=== PATIENT | male | born 1940 | race Caucasian/White ===

== ENCOUNTER 2020-11-23 13:04 | Outpatient (REF) | payer MEDICARE, SELFPAY ==
--- NOTE | 2020-11-23 17:26 | MHC.AU.AHA ---
Adult Audiological Evaluation Date of Visit: 11/23/20 Duct Layer Used: Reason for Appointment: Audiological evaluation to monitor the status of Mr. Gustafson's hearing loss. He has a longstanding history of bilateral sensorineural hearing loss and hearing aid use. He and his daughter believe that his hearing is gradually decreasing. Mr. Gustafson feels he does not receive much benefit from his current hearing aids. Mr. Gustafson has had some significant health changes in the past year, including having a pace maker placed several months ago. Previous Hearing Test Results: [facility] [place], 06/16/2019- Mild steeply sloping to profound sensorineural hearing loss bilaterally. Ear History: Ear Deformity: Recent Ear Drainage: Recent Ear Pain: Family History of Hearing Loss?: Recent Ear Infections: Ear Infections in Childhood: History of Ear Wax Buildup: Previous Ear Surgery: Bothersome Tinnitus/Ringing/Noises in Ears: Ear used on the phone: Blocked/Full Sensation in Ear(s): History of occupational noise exposure?: History: History: Branch: Years in : Medical History: Medical History: Diabetes Dizziness or Unsteadiness Heart Problems High Blood Pressure Medical History: Pace maker placed several months ago. 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: [employer] Model: InstallMonetizero V90-312 canal Serial Number: [id number] Battery Size: 312 Repair Warranty: 12/19/2018 Loss and Damage Warranty: 12/19/2018 Service Plan: Dispensed By: [facility] Date of Fittin07/01/2015 Hearing Instrument History- Left Ear: Lens Mounter: Phonak Model: InstallMonetizero V90-312 canal Serial Number: [id number] Battery Size: 312 Warranty: 12/19/2018 Loss and Damage Warranty: 12/19/2018 Service Plan: Dispensed By: [facility] Date of Fittin07/01/2015 Otoscopy: Right Ear: Unremarkable Left Ear: Unremarkable Tympanometry: Tympanometry performed due to: History of middle ear dysfunction Right Ear: Normal Middle Ear System (Type A) Left Ear: Normal Middle Ear System (Type A) Hearing Evaluation: Transducer(s) Used: Insert Earphones Bone Conduction Method: Conventional Audiometry Stimuli Used: Pure Tones Right Ear: Description of Hearing: Moderate hearing loss at 250 Hz, rising to a mild sensorineural hearing loss from 500-1000 Hz, and steeply sloping to a profound hearing loss from 6164-6458 Hz. Left Ear: Description of Hearing: Mild sensorineural hearing loss from 250-750 Hz, moderate sensorineural hearing loss at 1000 Hz, steeply sloping to a severe sensorineural hearing loss from 9728-5463 Hz, and a profound hearing loss from 6113-0779 Hz. Speech Recognition Threshold (SRT): Method Used: Monitored Live Voice Stimuli Used: Spondee Words Right Ear: 45 dBHL Left Ear: 45 dBHL Word Discrimination: Method: Recorded Lists Word Lists Used: NU-6 Right Ear: 64% at 85 dBHL, 64% at 95 dBHL Left Ear: 20% at 85 dBHL, 32% at 90 dBHL Binaural: 48% at 90 dBHL Most Comfortable Level (MCL): Right Ear: 95 dBHL Left Ear: 90 dBHL Comparison: Compared to the most recent evaluation: Hearing is stable. Word discrimination scores have decreased bilaterally. Interpretation of Results: Given significant decrease in word recognition scores in the left ear, the distortion cause by the hearing loss may be negatively affecting his overall speech understanding abilities. Recommendations: Audiological re-evaluation in one year. Hearing aid maintenance performed today. Hearing aid(s) reprogrammed with updated test results. See Hearing Aid Follow-Up note for more information. Recommend only using a right hearing aid at this time, as amplifying the left ear may be causing more distortion and negatively affecting overall speech understanding. Recommend trial of updated amplification for the right and a SAILAJA style hearing. Sent Mr. Gustafson home with a trial right hearing aid today. Will return in several weeks to discuss options. Diagnosis: Primary Diagnosis: H90.3 Bilateral Sensorineural Hearing Loss Services Performed: Comprehensive Audiological Evaluation (CPT 48310) Tympanometry (CPT 34895) Signature: Provider: Vale Ordonez, CCC-A
--- NOTE | 2020-11-23 17:29 | MHC.AU.AHA ---
Adult Audiological Evaluation Date of Visit: 11/23/20 Reason for Appointment: Audiological evaluation to monitor the status of Mr. Gustafson's hearing loss. He has a longstanding history of bilateral sensorineural hearing loss and hearing aid use. He and his daughter believe that his hearing is gradually decreasing. Mr. Gustafson feels he does not receive much benefit from his current hearing aids. Mr. Gustafson has had some significant health changes in the past year, including having a pace maker placed several months ago. Previous Hearing Test Results: [facility] [place], 06/16/2019- Mild steeply sloping to profound sensorineural hearing loss bilaterally. Medical History: Medical History: Diabetes, Dizziness or Unsteadiness, Heart Problems,High Blood Pressure Medical History: Pace maker placed several months ago. Hearing Instrument History- Right Ear: Mess Attendant: Phonak Model: Virto V90-312 canal Serial Number: [id number] Battery Size: 312 Repair Warranty: 12/19/2018 Loss and Damage Warranty: 12/19/2018 Dispensed By: [facility] Date of Fittin07/01/2015 Hearing Instrument History- Left Ear: Mess Attendant: Phonak Model: Virto V90-312 canal Serial Number: [id number] Battery Size: 312 Warranty: 12/19/2018 Loss and Damage Warranty: 12/19/2018 Dispensed By: [facility] Date of Fittin07/01/2015 Otoscopy: Right Ear: Unremarkable Left Ear: Unremarkable Tympanometry: Tympanometry performed due to: History of middle ear dysfunction Right Ear: Normal Middle Ear System (Type A) Left Ear: Normal Middle Ear System (Type A) Hearing Evaluation: Transducer(s) Used: Insert Earphones, Bone Conduction Method: Conventional Audiometry Stimuli Used: Pure Tones Right Ear: Description of Hearing: Moderate hearing loss at 250 Hz, rising to a mild sensorineural hearing loss from 500-1000 Hz, and steeply sloping to a profound hearing loss from 1828-6248 Hz. Left Ear: Description of Hearing: Mild sensorineural hearing loss from 250-750 Hz, moderate sensorineural hearing loss at 1000 Hz, steeply sloping to a severe sensorineural hearing loss from 4240-2149 Hz, and a profound hearing loss from 1130-6494 Hz. Speech Recognition Threshold (SRT): Method Used: Monitored Live Voice Stimuli Used: Spondee Words Right Ear: 45 dBHL Left Ear: 45 dBHL Word Discrimination: Method: Recorded Lists Word Lists Used: NU-6 Right Ear: 64% at 85 dBHL, 64% at 95 dBHL Left Ear: 20% at 85 dBHL, 32% at 90 dBHL Binaural: 48% at 90 dBHL Most Comfortable Level (MCL): Right Ear: 95 dBHL Left Ear: 90 dBHL Comparison: Compared to the most recent evaluation: Hearing is stable. Word discrimination scores have decreased bilaterally. Interpretation of Results: Given significant decrease in word recognition scores in the left ear, the distortion cause by the hearing loss may be negatively affecting his overall speech understanding abilities. Recommendations: Audiological re-evaluation in one year. Hearing aid maintenance performed today. Hearing aid(s) reprogrammed with updated test results. See Hearing Aid Follow-Up note for more information. Recommend only using a right hearing aid at this time, as amplifying the left ear may be causing more distortion and negatively affecting overall speech understanding. Recommend trial of updated amplification for the right and a SAILAJA style hearing. Sent Mr. Gustafson home with a trial right hearing aid today. Will return in several weeks to discuss options. Diagnosis: Primary Diagnosis: H90.3 Bilateral Sensorineural Hearing Loss Services Performed: Comprehensive Audiological Evaluation (CPT 38445) Tympanometry (CPT 86922) Signature: Provider: Vale Ordonez, CCC-A
== END 2020-11-23 13:05 | disposition home or self-care (01) ==
LOC: HO.SH 13:04
PROVIDERS: Visit Provider Internal Medicine
DX: H90.3 Sensorineural hearing loss, bilateral (principal)
CPT/HCPCS: 92557; 92567

== ENCOUNTER 2021-01-14 14:45 | Outpatient (REF) | payer SELFPAY | END 2021-01-14 14:46 | disposition home or self-care (01) | LOC: HO.HAP 14:45 | PROVIDERS: Visit Provider Internal Medicine | DX: Z13.89 Encounter for screening for other disorder (principal) ==